=== PATIENT | female | born 1960 | race Caucasian/White ===

== ENCOUNTER → 2017-02-28 | Outpatient (CLI) | payer OTHER ==
--- NOTE | 2017-02-28 16:30 | RAD ---
DATE: 02/28/2017 EXAM: MAMMO NGHIA SCREENING BILATERAL HISTORY: Screening mammogram COMPARISON: Multiple screening mammograms including 01/29/2016 October 20, 2014. This study was interpreted with the benefit of Computerized Aided Detection (CAD). The breast parenchyma shows scattered fibroglandular densities. Breast parenchyma level B. FINDINGS: Digital 2-D and 3-D tomosynthesis CC and MLO and implant displaced views views of both breasts . There are bilateral subpectoral saline implants. No suspicious mass, calcification or architectural distortion in either breast. No significant change from prior examination. IMPRESSION: No mammographic evidence to suggest malignancy. BI-RADS 2, benign. Recommend routine screening mammogram in 12 months. BI-RADS CATEGORY: 2 BENIGN FINDING(S) RECOMMENDED FOLLOW-UP: 12M 12 MONTH FOLLOW-UP PQRS compliance statement: Patient information was entered into a reminder system with a target due date February 2018 for the next mammogram. Mammography is a sensitive method for finding small breast cancers, but it does not detect them all and is not a substitute for careful clinical examination. A negative mammogram does not negate a clinically suspicious finding and should not result in delay in biopsying a clinically suspicious abnormality. "Our facility is accredited by the [employer] Mammography Program."
== END | disposition home or self-care (01) ==
LOC: MAMMO 08:44
PROVIDERS: ATTEND Obstetrics & Gynecology
DX: Z12.31 Encounter for screening mammogram for malignant neoplasm of breast (principal)
CPT/HCPCS: 77063; G0202; 77067

== ENCOUNTER 2017-06-30 20:37 | Emergency (ER) | payer OTHER ==
[~2017-06-30] VITALS: Ht 165.1 cm; Wt 78.6 kg
[2017-06-30] MEDS ORDERED: LIDO:MAALOX 1:1 20 ML SINGLE DOSE ONE (21:00)
[2017-06-30] MEDS ORDERED: LIDO:MAALOX 1:1 20 ML SINGLE DOSE PO ONE (21:00)
[2017-06-30 21:14] LABS: CLARITY,URINE CLOUDY; COLOR,URINE AMBER; GLUCOSE,URINE NEG (NEG)
[2017-06-30] MEDS ORDERED: ONDANSETRON ODT 4 MG TAB.RAPDIS PO ONE (21:15)
[2017-06-30 21:16] LABS: BILIRUBIN,URINE MOD (NEG); NITRITE,URINE NEG (NEG); UROBILINOGEN,URINE 2 mg/dL (0.2 mg/dL)
[2017-06-30] MEDS ORDERED: ONDANSETRON 4MG ODT 4TABLET STARTPACK. PO ONE (21:30)
[2017-06-30] MEDS ORDERED: DICYCLOMINE HCL 20 MG TABLET PO ONE (21:30)
[2017-06-30 21:35] VITALS: BP 156/99
--- NOTE | 2017-06-30 21:35 | PHYS DOC ---
General Chief Complaint: ABDOMINAL PAIN Stated Complaint: ABDOMINAL PAIN,FEVER Time Seen by MD: 20:40 Source: patient Exam Limitations: no limitations Problems: History of Present Illness Initial Comments Patient is a 56-year-old female who comes to the ED complaining of abdominal discomfort. Patient states that she had a colonoscopy approximately one week ago. She felt well for a few days afterwards but last few days she's had nonspecific nasal drainage with dry cough, low-grade fever earlier today with body aches and chills and intermittent abdominal discomfort. She had nausea prior to arrival with no vomiting, she also states that she had one loose stool earlier today. She feels bloated currently in the emergency department and does still complain of mild 3 out of 10 epigastric discomfort described as cramping or bloating. No bad food exposure or travel, no blood in her stools and no chest pain or trouble breathing. Patient is normally healthy Timing/Duration: intermittent, other Severity: mild Modifying Factors: worse with eating, worse with movement Associated Symptoms: fever/chills, malaise, nausea/vomiting Allergies: Coded Allergies: No Known Drug Allergies (Unverified , 07/18/16) Past Medical History Medical History: other (white coat hypertension, allergic rhinitis) Surgical History: cholecystectomy Social History Smoker: non-smoker Alcohol: none Drugs: none Review of Systems Constitutional: see HPI Respiratory: see HPI, denies shortness of breath, denies wheezing Cardiovascular: denies chest pain, denies palpitations, denies syncope Gastrointestinal: see HPI Genitourinary: denies dysuria, denies frequency, denies hematuria Musculoskeletal: denies back pain, denies joint swelling, muscle pain, denies neck pain Physical Exam General Appearance: WD/WN, no apparent distress Ear, Nose, Throat: hearing grossly normal, normal ENT inspection, normal pharynx Neck: non-tender, full range of motion, supple Respiratory: normal breath sounds, no respiratory distress Cardiovascular: normal peripheral pulses, regular rate, rhythm Gastrointestinal: normal bowel sounds, non tender, soft, no organomegaly (neg mcburney) Back: no CVA tenderness, no vertebral tenderness Extremities: non-tender, normal inspection 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 Interpreted by Dr. Dallas. 213: I discussed urine and imaging findings with the patient. I discussed options for further workup including labs and CT evaluation. Patient states that her discomfort is a 0 currently and she has no nausea she says she would like to try going home and will return if needed. I discussed Zofran and dicyclomine as well as oral hydration and other liquid diet. Signs and symptoms to monitor as well as urgent indications to return were also discussed the patient's questions were answered to her satisfaction. She expressed agreement and understanding with treatment plan. Departure Time of Disposition: 21:33 Disposition: 01 HOME, SELF-CARE Diagnosis: abdominal discomfort nonspecific Condition: IMPROVED Patient Instructions: Abdominal Pain (Nonspecific), Viral Gastroenteritis, Easy -to-Read Additional Instructions: As discussed it appears that you may be developing a stomach virus. Recommend clear liquid diet (Gatorade and water chicken broth) advance to bland diet tomorrow as tolerated. [id number] Tylenol as needed for fever and discomfort. Prescription: Zofran ODT, dicyclomine Follow-up with your doctor next week as needed. Return to ED with new or changing symptoms as discussed. MAXIMINO DALLAS DO Jun 30, 2017 21:35
[2017-06-30] MEDS ORDERED: DICY20TA3 PO (21:36)
[2017-06-30] MEDS ORDERED: ONDA4TAB10 PO (21:36)
--- NOTE | 2017-07-01 08:17 | RAD ---
ABDOMEN SUPINE UPRIGHT Clinical Indication: fever, nausea, cramping since this morning Comparison: None. Technique: Upright and supine views of the abdomen are obtained. Findings: No intra-abdominal free air is seen on the upright view. A few air-fluid levels are present within the right abdomen on the upright view. These appear to correspond with a colonic bowel loop. No definite dilated bowel loops are seen on either view to suggest obstruction. Small amount of formed fecal material is seen within the colon. Postcholecystectomy clips are seen within the right upper quadrant. Visualized osseous structures and surrounding soft tissues demonstrate no acute finding. Visualized lung bases appear clear. IMPRESSION: Nonspecific air-fluid levels in the right abdomen appear to correspond with colon, may suggest ileus. No dilated bowel loops seen to suggest obstruction.
== END 2017-06-30 21:37 | disposition home or self-care (01) ==
LOC: ER 20:37
DX: R10.13 Epigastric pain (principal); R19.7 Diarrhea, unspecified; R50.9 Fever, unspecified; R05 Cough; I10 Essential (primary) hypertension; Z90.49 Acquired absence of other specified parts of digestive tract
CPT/HCPCS: 74020; 81003; 99284; Q0162

== ENCOUNTER 2017-07-07 09:06 | Emergency (ER) | payer OTHER ==
[~2017-07-07] VITALS: Ht 165.1 cm; Wt 77.1 kg
[~2017-07-07 09:06] MED LIST: DICY20TA3 PO; ONDA4TAB10 PO
[2017-07-07 09:54] LABS: BASO # 0.1 x10^3/uL (0.0-0.2); BASO % 1 % (0-3); EOS # 0.2 x10^3/uL (0.0-0.7); EOS % 4 % (0-3); HEMATOCRIT 40.2 % (36.0-47.0); HEMOGLOBIN 13.8 g/dL (12.0-15.5); LYMPH # 1.7 x10^3/uL (1.0-4.8); LYMPH % 32 % (24-48); MEAN CORPUSCULAR HEMOGLOBIN 32 pg (25-35); MEAN CORPUSCULAR HGB CONC 34 g/dL (31-37); MEAN CORPUSCULAR VOLUME 92 fL (79-100); MONO # 0.3 x10^3/uL (0.0-1.1); MONO % 6 % (0-9); NEUT # 2.9 x10^3uL (1.8-7.7); NEUT % 56 % (31-73); PLATELET COUNT 160 x10^3/uL (140-400); RED BLOOD COUNT 4.39 x10^6/uL (3.50-5.40); RED CELL DISTRIBUTION WIDTH 16.6 % (11.5-14.5); WHITE BLOOD COUNT 5.1 x10^3/uL (4.0-11.0)
[2017-07-07 10:13] LABS: ALBUMIN/GLOBULIN RATIO 0.3 (1.0-1.7); CALCIUM 7.8 mg/dL (8.5-10.1); CREATININE 0.8 mg/dL (0.6-1.0); GFR 74.5; MAGNESIUM 1.8 mg/dL (1.8-2.4); POTASSIUM 3.5 mmol/L (3.5-5.1); TOTAL BILIRUBIN 2.3 mg/dL (0.2-1.0); TOTAL PROTEIN 8.5 g/dL (6.4-8.2)
[2017-07-07] MEDS ORDERED: IV NORMAL SALINE 1,000ML 1,000 ML IV ONE (10:30)
[2017-07-07] MEDS ORDERED: IOHEXOL 300 MG/ML 75 ML VIAL. IV ONE (10:30)
[2017-07-07] MEDS ORDERED: IOHEXOL 240 MG/ML 50ML VIAL. PO ONE (10:30)
--- NOTE | 2017-07-07 11:34 | RAD ---
Examination: CT of the abdomen pelvis with IV contrast History: History of abdominal pain, bloating Comparison: None available Technique: Axial CT images of the abdomen pelvis were performed with oral and IV contrast. Coronal and sagittal reformats were performed PQRS Compliance Statement: One or more of the following individualized dose reduction techniques were utilized for this examination: 1. Automated exposure control 2. Adjustment of the mA and/or kV according to patient size 3. Use of iterative reconstruction technique Findings: The visualized bibasal lungs demonstrate mild atelectasis or infiltrates. Bilateral breast prosthesis identified. No evidence of free air identified in the abdomen. There is mild nodular appearing liver likely secondary to cirrhosis. The visualized spleen, adrenals grossly appears unremarkable. The stomach is mildly distended. Cholecystectomy clips are identified. The visualized pancreas grossly appears unremarkable. There are multiple fluid distended dilated small bowel loops identified in the abdomen with mild surrounding inflammation fat stranding and mild enhancement of the small bowel loops. The very distalmost part of the terminal ileum appears nondistended. Feces and gas noted in the colon. The sigmoid colon and the rectum appears collapsed with mild surrounding fat stranding. Moderate amount of free fluid identified in the abdomen and pelvis. The bilateral kidneys enhance symmetrically. Urinary bladder is mildly distended. The visualized uterus, grossly appears unremarkable. There is a cystic is identified in the left adnexa measuring 2.2 cm could be a left ovarian cyst or cystic lesion. Small fat-containing left inguinal hernia identified. The bilateral kidneys enhance symmetrically. Mild degenerative changes lumbar spine. Impression: 1. Multiple dilated small bowel loops with collapsed appearing terminal ileum. Differential includes ileus, partial small bowel obstruction or small bowel obstruction. 2. Moderate amount of free fluid identified in the abdomen and pelvis probably due to underlying cirrhosis. 3. Mild hepatomegaly with nodular appearing liver likely cirrhosis. 4. 2.2 cm cyst or cystic lesion in the left ovary. 5. Mild fat stranding identified about the sigmoid colon the rectum could be colitis or due to nondistention. 6. Bibasal lung atelectasis or infiltrates.
[2017-07-07 12:32] LABS: BACTERIA,URINE 0 /HPF (0-FEW); BILIRUBIN,URINE NEG (NEG); CLARITY,URINE CLEAR; COLOR,URINE YELLOW; GLUCOSE,URINE NEG (NEG); NITRITE,URINE NEG (NEG); RBC,URINE 0 /HPF (0-2); SQUAMOUS EPITHELIAL CELL,UR FEW /LPF; UROBILINOGEN,URINE 1 mg/dL (0.2 mg/dL); WBC,URINE OCC /HPF (0-4)
--- NOTE | 2017-07-07 12:32 | PHYS DOC ---
Past History Past Medical History: Asthma Past Surgical History: Cholecystectomy, Tonsillectomy, Other Alcohol Use: Rarely Drug Use: None Adult General Chief Complaint Chief Complaint: ABDOMINAL PAIN HPI HPI Patient is a 57 year old F who presents with abdominal distention since her colonoscopy 2 weeks ago. She was seen in the emergency department one week ago for similar symptoms. She feels that her symptoms have progressively worsened. She states that she had measured the circumference of her upper abdomen and compared it to today. It is 6 inches larger today. She also has had smaller more frequent stools since her colonoscopy. She states that she has not had a normal formed stool since her colonoscopy. She also feels that the total volume of her stools is decreased compared to normal. Review of Systems Review of Systems Constitutional: Denies fever or chills [] Eyes: Denies change in visual acuity, redness, or eye pain [] HENT: Denies nasal congestion or sore throat [] Respiratory: Denies cough or shortness of breath [] Cardiovascular: No additional information not addressed in HPI [] GI: Denies abdominal pain, nausea, vomiting, bloody stools or diarrhea [] : Denies dysuria or hematuria [] Musculoskeletal: Denies back pain or joint pain [] Integument: Denies rash or skin lesions [] Neurologic: Denies headache, focal weakness or sensory changes [] Endocrine: Denies polyuria or polydipsia [] All other systems were reviewed and found to be within normal limits, except as documented in this note. Family History Family History No significant family history was reported Current Medications Current Medications Current Medications Medications (Trade) Dose Ordered Sig/[facility] Start Time Stop Time Status Last Admin Dose Admin Iohexol (Omnipaque 240 Mg/ml) 50 ml 1X ONCE 07/07/17 10:30 07/07/17 10:31 DC Iohexol (Omnipaque 300 Mg/ml) 75 ml 1X ONCE 07/07/17 10:30 07/07/17 10:31 DC 07/07/17 11:14 75 ML Sodium Chloride 1,000 ml @ 1,000 mls/hr 1X ONCE 07/07/17 10:30 07/07/17 11:29 DC 07/07/17 10:28 1,000 MLS/HR Allergies Allergies Allergies Coded Allergies Type Severity Reaction Last Updated Verified No Known Drug Allergies 07/18/16 No Physical Exam Physical Exam Constitutional: Well developed, well nourished, no acute distress, non-toxic appearance. [] HENT: Normocephalic, atraumatic, bilateral external ears normal, oropharynx moist, no oral exudates, nose normal. [] Eyes: EOMI, conjunctiva normal, no discharge. [] Neck: Normal range of motion, no tenderness, supple, no stridor. [] Cardiovascular:Heart rate regular rhythm, no murmur [] Lungs & Thorax: Bilateral breath sounds clear to auscultation [] Abdomen: Bowel sounds normal, soft, no tenderness, no masses, no pulsatile masses. Moderate distention the abdomen was noted Skin: Warm, dry, no erythema, no rash. [] Back: No tenderness, no CVA tenderness. [] Extremities: No tenderness, no cyanosis, no clubbing, ROM intact, no edema. [] Neurologic: Alert and oriented X 3, normal motor function, normal sensory function, no focal deficits noted. [] Psychologic: Affect normal, judgement normal, mood normal. [] Current Patient Data Vital Signs Vital Signs Date Time Temp Pulse Resp B/P (MAP) Pulse Ox O2 Delivery O2 Flow Rate FiO2 07/07/17 12:01 81 150/81 (104) 97 Room Air 07/07/17 10:30 16 07/07/17 09:10 98.0 Lab Results Laboratory Tests Test 07/07/17 09:43 White Blood Count 5.1 x10^3/uL (4.0-11.0) Red Blood Count 4.39 x10^6/uL (3.50-5.40) Hemoglobin 13.8 g/dL (12.0-15.5) Hematocrit 40.2 % (36.0-47.0) Mean Corpuscular Volume 92 fL (79-100) Mean Corpuscular Hemoglobin 32 pg (25-35) Mean Corpuscular Hemoglobin Concent 34 g/dL (31-37) Red Cell Distribution Width 16.6 % (11.5-14.5) H Platelet Count 160 x10^3/uL (140-400) Neutrophils (%) (Auto) 56 % (31-73) Lymphocytes (%) (Auto) 32 % (24-48) Monocytes (%) (Auto) 6 % (0-9) Eosinophils (%) (Auto) 4 % (0-3) H Basophils (%) (Auto) 1 % (0-3) Neutrophils # (Auto) 2.9 x10^3uL (1.8-7.7) Lymphocytes # (Auto) 1.7 x10^3/uL (1.0-4.8) Monocytes # (Auto) 0.3 x10^3/uL (0.0-1.1) Eosinophils # (Auto) 0.2 x10^3/uL (0.0-0.7) Basophils # (Auto) 0.1 x10^3/uL (0.0-0.2) Sodium Level 138 mmol/L (136-145) Potassium Level 3.5 mmol/L (3.5-5.1) Chloride Level 107 mmol/L (98-107) Carbon Dioxide Level 25 mmol/L (21-32) Anion Gap 6 (6-14) Blood Urea Nitrogen 6 mg/dL (7-20) L Creatinine 0.8 mg/dL (0.6-1.0) Estimated GFR (Cockcroft-Gault) 74.5 BUN/Creatinine Ratio 8 (6-20) Glucose Level 94 mg/dL (70-99) Calcium Level 7.8 mg/dL (8.5-10.1) L Magnesium Level 1.8 mg/dL (1.8-2.4) Total Bilirubin 2.3 mg/dL (0.2-1.0) H Direct Bilirubin 1.5 mg/dL (0.0-0.2) H Aspartate Amino Transferase (AST) 433 U/L (15-37) H Alanine Aminotransferase (ALT) 298 U/L (14-59) H Alkaline Phosphatase 104 U/L (46-116) Total Protein 8.5 g/dL (6.4-8.2) H Albumin 2.0 g/dL (3.4-5.0) L Albumin/Globulin Ratio 0.3 (1.0-1.7) L EKG EKG [] Radiology/Procedures Radiology/Procedures CT abdomen and pelvis with IV and by mouth contrast Impressions: Findings: The visualized bibasal lungs demonstrate mild atelectasis or infiltrates. Bilateral breast prosthesis identified. No evidence of free air identified in the abdomen. There is mild nodular appearing liver likely secondary to cirrhosis. The visualized spleen, adrenals grossly appears unremarkable. The stomach is mildly distended. Cholecystectomy clips are identified. The visualized pancreas grossly appears unremarkable. There are multiple fluid distended dilated small bowel loops identified in the abdomen with mild surrounding inflammation fat stranding and mild enhancement of the small bowel loops. The very distalmost part of the terminal ileum appears nondistended. Feces and gas noted in the colon. The sigmoid colon and the rectum appears collapsed with mild surrounding fat stranding. Moderate amount of free fluid identified in the abdomen and pelvis. The bilateral kidneys enhance symmetrically. Urinary bladder is mildly distended. The visualized uterus, grossly appears unremarkable. There is a cystic is identified in the left adnexa measuring 2.2 cm could be a left ovarian cyst or cystic lesion. Small fat-containing left inguinal hernia identified. The bilateral kidneys enhance symmetrically. Mild degenerative changes lumbar spine. Impression: 1. Multiple dilated small bowel loops with collapsed appearing terminal ileum. Differential includes ileus, partial small bowel obstruction or small bowel obstruction. 2. Moderate amount of free fluid identified in the abdomen and pelvis probably due to underlying cirrhosis. 3. Mild hepatomegaly with nodular appearing liver likely cirrhosis. 4. 2.2 cm cyst or cystic lesion in the left ovary. 5. Mild fat stranding identified about the sigmoid colon the rectum could be colitis or due to nondistention. 6. Bibasal lung atelectasis or infiltrates. Course & Med Decision Making Course & Med Decision Making Pertinent Labs and Imaging studies reviewed. (See chart for details) GI at was contacted by phone. Transfer was recommended for further evaluation. Dragon Disclaimer Dragon Disclaimer This electronic medical record was generated, in whole or in part, using a voice recognition dictation system. Departure Departure: Impression: Primary Impression: Hepatitis Additional Impressions: Hyperbilirubinemia Elevated INR Ascites Disposition: XFER OTHER Condition: STABLE Referrals: WALDO BACA DO (PCP) Problem Qualifiers Additional Impressions: Ascites Ascites type: other type Qualified Codes: R18.8 - Other ascites TOBI BRAVO MD Jul 07, 2017 12:32
[2017-07-07 12:33] LABS: U PREG PATIENT NEGATIVE (NEG)
[2017-07-07] MEDS ORDERED: ALBU8.5H8 INH (14:21)
[2017-07-07] MEDS ORDERED: MONT10TA9 PO (14:21)
[2017-07-07 14:23] VITALS: BP 129/73
== END 2017-07-07 15:18 | disposition short-term general hospital (02) ==
LOC: ER 09:06
DX: K75.9 Inflammatory liver disease, unspecified (principal); R79.1 Abnormal coagulation profile; J45.909 Unspecified asthma, uncomplicated; Z90.49 Acquired absence of other specified parts of digestive tract
CPT/HCPCS: 36415; 74177; 80053; 81001; 81025; 82248; 83735; 84100; 85025; 85610; 96360; 96361; 99285; Q9967; J7030

== ENCOUNTER → 2018-02-08 | Outpatient (CLI) | payer OTHER ==
[~2018-02-08] MED LIST changes: +ALBU8.5H8 INH; +MONT10TA9 PO
--- NOTE | 2018-02-08 15:02 | RAD ---
Bone densitometry scan, 02/08/2018: History: Check bone mineral density, patient on steroids The lumbar spine and right hip were examined utilizing a DEXA technique. The bone mineral density in the lumbar spine as measured from the L1-L4 levels is 1.40 g/sq cm. This yields a T score of 1.8 which is in the normal range. The total T score at the right hip is -0.2 which is also in the normal range. IMPRESSION: Normal bone mineral density measurements.
== END | disposition home or self-care (01) ==
LOC: DXRAD 09:23
PROVIDERS: ATTEND Internal Medicine
DX: K75.4 Autoimmune hepatitis (principal); I10 Essential (primary) hypertension
CPT/HCPCS: 77080

== ENCOUNTER → 2018-08-07 | Outpatient (CLI) | payer OTHER ==
[~2018-08-07] MED LIST changes: +ALBU2.5V8 INH; -ALBU8.5H8 INH
--- NOTE | 2018-08-07 12:06 | RAD ---
Complete abdominal ultrasound 08/07/2018 9:00 AM Clinical History: Autoimmune hepatitis Technique: Ultrasound examination of the abdomen was performed, and multiple static images were submitted for review. Comparison: CT of the abdomen and pelvis July 07, 2017 Findings: The visualized portions of the pancreas are within normal limits. The visualized aorta and IVC are unremarkable. Prior cholecystectomy is noted. The liver measures 16 cm longitudinally. Hepatic echotexture is coarsened. Mild irregularity of the hepatic contour is seen. No intrahepatic biliary ductal dilatation is seen. No focal hepatic lesions are identified. The spleen is unremarkable in appearance. Minimal fullness in the right renal pelvis is seen, likely incidental. Otherwise the bilateral kidneys are normal in appearance without evidence of nephrolithiasis, or focal renal lesion. Right kidney measures 11.3 cm in length. Left kidney measures 10.6 cm in length. Impression: Coarsening of hepatic echotexture. Findings could reflect cirrhotic morphology Electronically signed by: Dewayne Ortega MD (08/07/2018 12:02 PM) [id number]
== END | disposition home or self-care (01) ==
LOC: US 08:26
PROVIDERS: ATTEND Internal Medicine
DX: K75.4 Autoimmune hepatitis (principal); Z90.49 Acquired absence of other specified parts of digestive tract
CPT/HCPCS: 76700

== ENCOUNTER → 2020-06-22 | Outpatient (CLI) | payer OTHER ==
[~2020-06-22] MED LIST changes: +MONT10TA80 PO; -MONT10TA9 PO
[2020-06-22 10:28] LABS: BASO % 1 % (0-3); EOS % 2 % (0-3); HEMATOCRIT 40.9 % (36.0-47.0); HEMOGLOBIN 13.6 g/dL (12.0-15.5); LYMPH # 0.8 x10^3/uL (1.0-4.8); LYMPH % 32 % (24-48); MEAN CORPUSCULAR HEMOGLOBIN 32 pg (25-35); MEAN CORPUSCULAR HGB CONC 33 g/dL (31-37); MEAN CORPUSCULAR VOLUME 95 fL (79-100); MONO # 0.2 x10^3/uL (0.0-1.1); MONO % 7 % (0-9); NEUT # 1.5 x10^3uL (1.8-7.7); NEUT % 59 % (31-73); PLATELET COUNT 81 x10^3/uL (140-400); RED BLOOD COUNT 4.31 x10^6/uL (3.50-5.40); RED CELL DISTRIBUTION WIDTH 15.6 % (11.5-14.5); WHITE BLOOD COUNT 2.5 x10^3/uL (4.0-11.0)
[2020-06-22 10:39] LABS: ALBUMIN 3.6 g/dL (3.4-5.0); ALBUMIN/GLOBULIN RATIO 0.8 (1.0-1.7); CALCIUM 9.2 mg/dL (8.5-10.1); CREATININE 0.6 mg/dL (0.6-1.0); POTASSIUM 3.7 mmol/L (3.5-5.1); TOTAL BILIRUBIN 0.8 mg/dL (0.2-1.0); TOTAL PROTEIN 8.2 g/dL (6.4-8.2)
[2020-06-22 11:26] LABS: PLT ESTIMATE DECREASED (ADEQUATE)
[2020-06-22 20:07] LABS: AFPT MARKER 3.3 ng/mL (0.0-8.3)
== END ==
LOC: LAB 08:11
PROVIDERS: ATTEND Internal Medicine
DX: K75.4 Autoimmune hepatitis (principal)
CPT/HCPCS: 36415; 80053; 82105; 84590; 85025; 85610

== ENCOUNTER → 2020-07-07 | Outpatient (CLI) | payer OTHER ==
--- NOTE | 2020-07-07 09:07 | RAD ---
Complete Abdominal Ultrasound: Clinical History: Reason: AUTOIMMUNE HEPATITIS / Spl. Instructions: / History: Technique: Sonographic examination of the abdomen was performed and multiple static images were obtained. Findings: Liver: The majority is visualized and appears homogeneous. Common bile duct: Appears normal measures 5 mm in diameter. Gallbladder: Removed. Portal vein: Appears normal. Pancreas: is not well visualized due to overlying bowel gas but appears within normal limits. Right kidney: appears normal and measures 10 cm in length. Left kidney appears normal and measures 10 cm in length. Spleen: Mild to moderately enlarged measuring 15 cm in length. There is appropriate flow in the main portal vein. The abdominal aorta and IVC are obscured by overlying bowel gas. Impression: Splenomegaly. Electronically signed by: Mina Lama III, MD (07/07/2020 9:04 AM) [id number]
== END ==
LOC: US 07:40
PROVIDERS: ATTEND Internal Medicine
DX: K75.4 Autoimmune hepatitis (principal); R16.1 Splenomegaly, not elsewhere classified
CPT/HCPCS: 76700

== ENCOUNTER → 2021-01-26 | Outpatient (CLI) | payer OTHER ==
[2021-01-26 10:11] LABS: BASO % 1 % (0-3); EOS % 1 % (0-3); HEMATOCRIT 35.4 % (36.0-47.0); HEMOGLOBIN 11.5 g/dL (12.0-15.5); LYMPH # 0.7 x10^3/uL (1.0-4.8); LYMPH % 28 % (24-48); MEAN CORPUSCULAR HEMOGLOBIN 28 pg (25-35); MEAN CORPUSCULAR HGB CONC 33 g/dL (31-37); MEAN CORPUSCULAR VOLUME 87 fL (79-100); MONO # 0.2 x10^3/uL (0.0-1.1); MONO % 7 % (0-9); NEUT # 1.6 x10^3uL (1.8-7.7); NEUT % 63 % (31-73); PLATELET COUNT 103 x10^3/uL (140-400); RED BLOOD COUNT 4.09 x10^6/uL (3.50-5.40); RED CELL DISTRIBUTION WIDTH 16.4 % (11.5-14.5); WHITE BLOOD COUNT 2.6 x10^3/uL (4.0-11.0)
[2021-01-26 10:23] LABS: ALBUMIN 3.7 g/dL (3.4-5.0); ALBUMIN/GLOBULIN RATIO 0.9 (1.0-1.7); CALCIUM 9.2 mg/dL (8.5-10.1); CREATININE 0.6 mg/dL (0.6-1.0); GFR 102.7; POTASSIUM 3.6 mmol/L (3.5-5.1); TOTAL BILIRUBIN 0.6 mg/dL (0.2-1.0)
--- NOTE | 2021-01-26 10:57 | RAD ---
EXAM: DUAL ENERGY X-RAY ABSORPTIOMETRY (DEXA). HISTORY: Postmenopausal screening. FINDINGS: The lowest measured T-score is -2.6 in the right femoral neck, based on a bone mineral dens ity of 0.615 g/cm^2. Refer to the worksheets for full detail. In comparison with the prior study of 02/08/2018, average bone mineral density at the lumbar spine gonzalez s changed -12.6%, while the average density at the right hip has changed -23.6%. IMPRESSION: Osteoporosis. Bone mineral density yields a T-score of -2.5 or less. Fracture risk is high. FRAX was not calculated. METHODOLOGY: Dual energy x-ray absorptiometry was performed to measure bone mineral density. The foll owing analysis is based on the 2019 Official Positions of the International Society for Clinical Dens itometry: Measurements of the hips and the average of L1-L4 are preferred. When the spine and/or hip cannot be feasibly measured or interpreted, or in the setting of hyperparathyroidism, distal radial bone minera l density may be measured. The lumbar spine T-score is based on the average bone mineral density of L1-L4. In the setting of art ifact or anatomic abnormality, some lumbar levels may be excluded, and the remaining levels used for calculation. A single lumbar level is not used for diagnosis, and if only a single level is available for assessment, another anatomic site will be used to assign a diagnosis. The hip T-score is based on the bone mineral density measurement of the femoral neck or total proxima l femur of either side, whichever is lowest. Bilateral mean values are not used for diagnosis. The forearm T-score is derived from 33% of the distal radius of the nondominant forearm. For postmenopausal and perimenopausal women, and men age 50 or older, of all ethnic groups, T-scores are calculated through comparison of the current measurement with the NHANES III database standard fo r females aged 20-29 years. The lowest T-score of the evaluated anatomic sites is used to a ssign a diagnosis based on the World Health Organization densitometric classification. In premenopausal females and males younger than age 50, a Z-score is calculated based on population s pecific reference data for patient sex and self-reported ethnicity. Electronically signed by: Carmel Cavazos MD (01/26/2021 10:54 AM) [id number]
--- NOTE | 2021-01-26 11:13 | RAD ---
EXAM: RIGHT UPPER QUADRANT ULTRASOUND. HISTORY: Cirrhosis, autoimmune hepatitis. COMPARISON: 07/07/2020, 07/07/2017. FINDINGS: Sonographic evaluation of the right upper quadrant was performed. Portal venous flow direction normal. Hepatic surface nodularity is consistent with cirrhotic change. There are no focal lesions. The gallbladder is surgically absent. There is no sonographic Mckeon sign. The common duct measures 5 mm. The visualized portions of the head and body of the pancreas reveal no abnormality. The right kidney measures 10.6 cm. Cortical thickness and echogenicity are preserved. There is no hyd ronephrosis. The visualized portions of the abdominal aorta and inferior vena cava are grossly patent and normal i n caliber. IMPRESSION: 1. Morphologic changes of cirrhosis. No focal hepatic lesions by sonography. Electronically signed by: Carmel Cavazos MD (01/26/2021 11:10 AM) [id number]
[2021-01-26 20:07] LABS: AFPT MARKER 2.8 ng/mL (0.0-8.3)
== END ==
LOC: US 08:30
PROVIDERS: ATTEND Nurse Practitioner Adult Health
DX: M81.0 Age-related osteoporosis without current pathological fracture (principal); K74.69 Other cirrhosis of liver; K75.4 Autoimmune hepatitis; Z90.49 Acquired absence of other specified parts of digestive tract
CPT/HCPCS: 76705; 77080; 80053; 82105; 82784; 84590; 85025; 85610

== ENCOUNTER → 2021-04-06 | Outpatient (CLI) | payer OTHER ==
[2021-04-06 09:38] LABS: ALBUMIN 3.4 g/dL (3.4-5.0); ALBUMIN/GLOBULIN RATIO 0.7 (1.0-1.7); CREATININE 0.6 mg/dL (0.6-1.0); GFR 102.7; POTASSIUM 3.8 mmol/L (3.5-5.1); TOTAL BILIRUBIN 0.6 mg/dL (0.2-1.0)
[2021-04-06 21:07] LABS: IMMUNOGLOBULIN A 531 mg/dL (87-352); IMMUNOGLOBULIN G 1753 mg/dL (586-1602); IMMUNOGLOBULIN M 276 mg/dL (26-217)
== END ==
LOC: LAB 07:59
PROVIDERS: ATTEND Nurse Practitioner Adult Health
DX: K75.4 Autoimmune hepatitis (principal); K74.69 Other cirrhosis of liver
CPT/HCPCS: 36415; 80053; 82784; 85610

== ENCOUNTER → 2021-05-21 | Outpatient (CLI) | payer OTHER ==
[2021-05-21 16:35] LABS: BASO % 1 % (0-3); EOS # 0.1 x10^3/uL (0.0-0.7); EOS % 2 % (0-3); HEMOGLOBIN 12.1 g/dL (12.0-15.5); LYMPH # 1.1 x10^3/uL (1.0-4.8); LYMPH % 32 % (24-48); MEAN CORPUSCULAR HEMOGLOBIN 28 pg (25-35); MEAN CORPUSCULAR HGB CONC 33 g/dL (31-37); MEAN CORPUSCULAR VOLUME 86 fL (79-100); MONO # 0.3 x10^3/uL (0.0-1.1); MONO % 8 % (0-9); NEUT # 1.9 x10^3uL (1.8-7.7); NEUT % 56 % (31-73); PLATELET COUNT 135 x10^3/uL (140-400); RED CELL DISTRIBUTION WIDTH 18.2 % (11.5-14.5); WHITE BLOOD COUNT 3.5 x10^3/uL (4.0-11.0)
[2021-05-21 16:49] LABS: ALBUMIN 3.4 g/dL (3.4-5.0); ALBUMIN/GLOBULIN RATIO 0.7 (1.0-1.7); CALCIUM 9.2 mg/dL (8.5-10.1); CREATININE 0.6 mg/dL (0.6-1.0); GFR 102.7; POTASSIUM 3.9 mmol/L (3.5-5.1); TOTAL BILIRUBIN 0.7 mg/dL (0.2-1.0)
== END ==
LOC: LAB 15:59
PROVIDERS: ATTEND Nurse Practitioner Adult Health
DX: K75.4 Autoimmune hepatitis (principal)
CPT/HCPCS: 36415; 80053; 82784; 85025

== ENCOUNTER → 2021-09-09 | Outpatient (CLI) | payer OTHER ==
[~2021-09-09] MED LIST changes: +DICY20TA PO; -DICY20TA3 PO
--- NOTE | 2021-09-09 09:13 | RAD ---
EXAM: Abdomen sonogram. HISTORY: Hepatitis. Cirrhosis. TECHNIQUE: Sonographic imaging of the abdomen was performed. COMPARISON: None. FINDINGS: The liver is normal in size. There is heterogeneous hepatic echotexture and hepatic surface nodularity consistent with cirrhosis. No focal hepatic lesion is seen sonographically. The gallbladd er is surgically absent. There is common bile duct dilatation, measuring 8 mm. The right kidney is un remarkable. There is an echogenic pancreas. No focal pancreatic lesion is seen. The inferior vena cav a is obscured. There is no visible abdominal ascites. IMPRESSION: 1. Hepatic cirrhosis. 2. Dilated common bile duct. This can be due to reservoir effect status post cholecystectomy. 3. Echogenic pancreas. No focal pancreatic lesion is seen. Electronically signed by: Mary Rocha MD (09/09/2021 9:11 AM) [id number]
[2021-09-09 09:24] LABS: BASO % 1 % (0-3); EOS # 0.1 x10^3/uL (0.0-0.7); EOS % 4 % (0-3); HEMATOCRIT 39.8 % (36.0-47.0); HEMOGLOBIN 13.3 g/dL (12.0-15.5); LYMPH # 0.9 x10^3/uL (1.0-4.8); LYMPH % 36 % (24-48); MEAN CORPUSCULAR HEMOGLOBIN 30 pg (25-35); MEAN CORPUSCULAR HGB CONC 33 g/dL (31-37); MEAN CORPUSCULAR VOLUME 90 fL (79-100); MONO # 0.2 x10^3/uL (0.0-1.1); MONO % 7 % (0-9); NEUT # 1.3 x10^3uL (1.8-7.7); NEUT % 52 % (31-73); PLATELET COUNT 128 x10^3/uL (140-400); RED BLOOD COUNT 4.45 x10^6/uL (3.50-5.40); RED CELL DISTRIBUTION WIDTH 16.7 % (11.5-14.5); WHITE BLOOD COUNT 2.6 x10^3/uL (4.0-11.0)
[2021-09-09 10:07] LABS: ALBUMIN 3.3 g/dL (3.4-5.0); ALBUMIN/GLOBULIN RATIO 0.7 (1.0-1.7); CREATININE 0.6 mg/dL (0.6-1.0); GFR 102.3; POTASSIUM 3.9 mmol/L (3.5-5.1); TOTAL BILIRUBIN 0.5 mg/dL (0.2-1.0); TOTAL PROTEIN 7.8 g/dL (6.4-8.2)
[2021-09-10 00:07] LABS: AFPT MARKER 2.4 ng/mL (0.0-8.3)
== END ==
LOC: US 08:24
PROVIDERS: ATTEND Nurse Practitioner Adult Health
DX: K74.69 Other cirrhosis of liver (principal); K75.4 Autoimmune hepatitis; K83.8 Other specified diseases of biliary tract
CPT/HCPCS: 36415; 76705; 80053; 82105; 82306; 82784; 84590; 85025; 85610

== ENCOUNTER → 2021-12-02 | Outpatient (CLI) | payer OTHER ==
[2021-12-02 13:40] LABS: BASO % 1 % (0-3); EOS # 0.1 x10^3/uL (0.0-0.7); EOS % 3 % (0-3); HEMATOCRIT 41.8 % (36.0-47.0); HEMOGLOBIN 14.2 g/dL (12.0-15.5); LYMPH # 0.9 x10^3/uL (1.0-4.8); LYMPH % 28 % (24-48); MEAN CORPUSCULAR HEMOGLOBIN 31 pg (25-35); MEAN CORPUSCULAR HGB CONC 34 g/dL (31-37); MEAN CORPUSCULAR VOLUME 91 fL (79-100); MONO # 0.2 x10^3/uL (0.0-1.1); MONO % 7 % (0-9); NEUT % 61 % (31-73); PLATELET COUNT 135 x10^3/uL (140-400); RED BLOOD COUNT 4.58 x10^6/uL (3.50-5.40); RED CELL DISTRIBUTION WIDTH 15.8 % (11.5-14.5); WHITE BLOOD COUNT 3.2 x10^3/uL (4.0-11.0)
[2021-12-02 13:53] LABS: ALBUMIN 3.5 g/dL (3.4-5.0); ALBUMIN/GLOBULIN RATIO 0.7 (1.0-1.7); CALCIUM 9.9 mg/dL (8.5-10.1); CREATININE 0.6 mg/dL (0.6-1.0); GFR 102.3; TOTAL BILIRUBIN 0.8 mg/dL (0.2-1.0); TOTAL PROTEIN 8.5 g/dL (6.4-8.2)
[2021-12-03 01:10] LABS: IMMUNOGLOBULIN A 523 mg/dL (87-352); IMMUNOGLOBULIN G 2044 mg/dL (586-1602); IMMUNOGLOBULIN M 389 mg/dL (26-217)
== END ==
LOC: LAB 13:05
PROVIDERS: ATTEND Internal Medicine
DX: K75.4 Autoimmune hepatitis (principal)
CPT/HCPCS: 36415; 80053; 82784; 85025; 85610